=== PATIENT | male | born 1995 | race Asian ===

== ENCOUNTER → 2017-01-26 | Outpatient (CLI) | payer OTHER ==
[2017-01-26 14:37] LABS: BASO % 0.2 %; BASO ABS # 0.01 K/uL (0-0.2); COMPLETE YES; EOS % 2.1 %; HEMATOCRIT 43.6 % (42-52); IG% 0.2 %; LYMPH % 35.5 %; LYMPH ABS # 2.25 K/uL (1.2-3.4); MEAN CELL VOLUME 93.2 fL (80-100); MEAN CORPUSCULAR HGB CONC 33.3 g/dl (32-36); MEAN PLATELET VOLUME 10.8 fL (7.4-10.4); MONO % 7.4 %; NEUT % 54.6 %; PLATELET COUNT 180 K/uL (130-400); RED BLOOD COUNT 4.68 M/uL (4.7-6.1); WHITE BLOOD COUNT 6.34 K/uL (4.8-10.8)
[2017-01-26 14:48] LABS: ALT/SGPT 20 U/L (12-78); BLOOD UREA NITROGEN 13 mg/dl (7-18); BUN/CREATININE RATIO 18.8 (10-20); CALCIUM 9.3 mg/dl (8.5-10.1); CARBON DIOXIDE 31 mmol/L (21-32); CHLORIDE 102 mmol/L (98-107); CREATININE 0.69 mg/dl (0.60-1.40); GLUCOSE 91 mg/dl (70-99); POTASSIUM 4.1 mmol/L (3.5-5.1); SODIUM 139 mmol/L (136-145)
[2017-01-26 14:51] LABS: ALB/GLOB RATIO 1.3 (0.9-2); ALKALINE PHOSPHATASE 53 U/L (45-117); AST/SGOT 11 U/L (15-37)
[2017-02-03 05:33] LABS: JCV ANTIBODY INDETERMINATE; JCV INDEX 0.33
[2017-02-03 10:32] LABS: JCV INHIBITION(REFLX!DO NOTORD FINAL RSLT: POSITIVE
== END | disposition home or self-care (01) ==
LOC: C.LAB1850 12:34
PROVIDERS: ATTEND Psychiatry & Neurology Neurology
DX: G35 Multiple sclerosis (principal)

== ENCOUNTER → 2017-04-08 | Outpatient (CLI) | payer OTHER ==
[~2017-04-08] MED LIST: GADAVIST IV PRN
--- NOTE | 2017-04-08 18:51 | DIAGNOSTIC IMAGING REPORT ---
BRAIN COMBO FOR MS HISTORY: Multiple sclerosis G35 Multiple sclerosis TECHNIQUE: Multiplanar multisequence MRI of the brain was performed both before and after the intravenous administration of contrast. COMPARISON STUDY: None. FINDINGS: Diffusion-weighted images show no evidence for an acute ischemic insult. There are multiple foci of increased signal periventricular deep white matter regions. Cortical foci of demyelination are also noted over the left parietal and occipital subcortical regions. Foci of increased signal are noted within the right and to lesser extent left optic radiations. Postcontrast images show no evidence for abnormal postcontrast enhancement. The ventricular system is midline. IMPRESSION: 1. Findings consistent with a demyelinating disorder with multiple foci of increased signal throughout both cerebral hemispheres. 2. No abnormal postcontrast enhancement. 3. No evidence for an acute ischemic insult. 4. As prior studies are not available for comparison, the possibility of change from prior examination cannot be evaluated. The above report was generated using voice recognition software. It may contain grammatical, syntax or spelling errors. Electronically signed by: Rocky Eagle M.D. 04/08/2017 6:49 PM Dictated Date/Time: 04/08/2017 6:45 PM
== END | disposition home or self-care (01) ==
LOC: C.MRI 17:10
PROVIDERS: ATTEND Psychiatry & Neurology Neurology
DX: G35 Multiple sclerosis (principal)

== ENCOUNTER → 2017-09-06 | Outpatient (CLI) | payer OTHER ==
[2017-09-06 09:34] LABS: BASO % 0.2 %; BASO ABS # 0.01 K/uL (0-0.2); EOS % 3.1 %; EOS ABS # 0.18 K/uL (0-0.5); HEMATOCRIT 45.6 % (42-52); HEMOGLOBIN 15.2 g/dL (14.0-18.0); IG# 0.01 K/uL (0.00-0.02); LYMPH % 34.4 %; LYMPH ABS # 2.01 K/uL (1.2-3.4); MEAN CELL VOLUME 94.8 fL (80-100); MEAN CORPUSCULAR HEMOGLOBIN 31.6 pg (25-34); MEAN CORPUSCULAR HGB CONC 33.3 g/dl (32-36); MEAN PLATELET VOLUME 9.7 fL (7.4-10.4); MONO % 10.4 %; MONO ABS # 0.61 K/uL (0.11-0.59); NEUT % 51.7 %; NEUT ABS # 3.03 K/uL (1.4-6.5); PLATELET COUNT 216 K/uL (130-400); RED CELL DISTRIBUTION WIDTH CV 12.5 % (11.5-14.5); RED CELL DISTRIBUTION WIDTH SD 43.2 fL (36.4-46.3); WHITE BLOOD COUNT 5.85 K/uL (4.8-10.8)
[2017-09-06 09:58] LABS: ALBUMIN 4.1 gm/dl (3.4-5.0); ALT/SGPT 17 U/L (12-78); BLOOD UREA NITROGEN 10 mg/dl (7-18); CALCIUM 9.2 mg/dl (8.5-10.1); CARBON DIOXIDE 31 mmol/L (21-32); CREATININE 0.77 mg/dl (0.60-1.40); GLUCOSE 91 mg/dl (70-99); POTASSIUM 3.8 mmol/L (3.5-5.1); SODIUM 140 mmol/L (136-145)
[2017-09-06 10:01] LABS: ALKALINE PHOSPHATASE 53 U/L (45-117); AST/SGOT 13 U/L (15-37); TOTAL PROTEIN 7.3 gm/dl (6.4-8.2)
== END | disposition home or self-care (01) ==
LOC: C.LAB 08:48
PROVIDERS: ATTEND Psychiatry & Neurology Neurology
DX: G35 Multiple sclerosis (principal)

== ENCOUNTER → 2017-12-01 | Outpatient (CLI) | payer OTHER ==
--- NOTE | 2017-12-01 18:06 | ECHOCARDIOGRAM REPORT ---
*NOTICE TO RECEIVING LIBERTARIAN AGENCY This information is strictly Confidential and protected under [place] law. [place] law prohibits you from making any further disclosure of this information unless further disclosure is expressly permitted by the written consent of the person to whom it pertains or is authorized by law. A general authorization for the release of medical or other information is not sufficient for this purpose. Hospital accepts no responsibility if the information is made available to any other person, INCLUDING THE PATIENT. Interpretation Summary * Name: JAGDEEP LAUGHLIN Study Date: 12/01/2017 02:41 PM BP: 118/65 mmHg * Patient Location: [facility] HR: 82 * : 1995 (M/d/yyyy) Gender: Male Height: 67 in * Age: 22 yrs Ethnicity: Weight: 142 lb * Ordering Physician: Venus Levy * Referring Physician: Venus Levy * Performed By: Debbi Granados RDCS * * Reason For Study: PALPITATIONS * BSA: 1.7 m2 * -- Conclusions -- * 1. Normal left ventricular size and systolic function. EF 55-60%. No regional wall motion abnormalities. No left ventricular hypertrophy. No significant diastolic dysfunction. * 2. No significant valvular abnormalities. * 3. Normal estimated right ventricular systolic pressure. * 4. No prior study available for comparison. Procedure Details * A complete two-dimensional transthoracic echocardiogram was performed (2D, M-mode, Doppler and color flow Doppler). Left Ventricle * Normal left ventricular size and systolic function. EF 55-60%. No regional wall motion abnormalities. No left ventricular hypertrophy. No significant diastolic dysfunction. Right Ventricle * The right ventricle is normal in size and function. * The right ventricular systolic function is normal as assessed by tricuspid annular plane systolic excursion (TAPSE) (normal >1.5 cm). Atria * The left atrial size is normal. * Right atrial size is normal. * There is no evidence of atrial septal defect, but resolution does not allow assessment for a patent foramen ovale. Mitral Valve * The mitral valve leaflets appear normal. There is no evidence of stenosis, fluttering, or prolapse. * There is no mitral regurgitation noted. Tricuspid Valve * The tricuspid valve is not well visualized, but is grossly normal. * There is no tricuspid stenosis. * There is trace tricuspid regurgitation. Aortic Valve * The aortic valve is trileaflet. * No hemodynamically significant valvular aortic stenosis. * No aortic regurgitation is present. Pulmonic Valve * The pulmonary valve is inadequately visualized, but the Doppler data is adequate for interpretation. * There is no pulmonic valvular stenosis. * Mild pulmonic valvular regurgitation. Great Vessels * The aortic root is normal size. * Ascending aorta of normal dimension * Aortic arch of normal dimension. Pericardium/Pleural * There is no pericardial effusion. Great Vessels * Normal inferior vena cava size and collapsability with sniff indicates a normal right atrial pressure of 3 mmHg MMode 2D Measurements and Calculations IVSd 0.81 cm IVSs 1.4 cm LVIDd 4.3 cm LVIDs 3.1 cm LVPWd 1.1 cm LVPWs 1.4 cm IVS/LVPW 0.76 FS 29.2 % EDV(Teich) 85.3 ml ESV(Teich) 37.3 ml EF(Teich) 56.3 % EDV(cubed) 82.2 ml ESV(cubed) 29.2 ml EF(cubed) 64.5 % % IVS thick 67.3 % % LVPW thick 35.4 % LV mass(C)d 132.7 grams LV mass(C)dI 75.9 grams/m\S\2 LV mass(C)s 145.1 grams LV mass(C)sI 83.0 grams/m\S\2 SV(Teich) 48.0 ml SI(Teich) 27.4 ml/m\S\2 SV(cubed) 53.0 ml SI(cubed) 30.3 ml/m\S\2 Ao root diam 2.8 cm Ao root area 6.1 cm\S\2 LA dimension 3.5 cm asc Aorta Diam 2.0 cm LA/Ao 1.3 LVAd ap4 31.5 cm\S\2 LVLd ap4 8.3 cm EDV(MOD-sp4) 99.8 ml EDV(sp4-el) 102.2 ml LVAs ap4 19.5 cm\S\2 LVLs ap4 7.1 cm ESV(MOD-sp4) 45.7 ml ESV(sp4-el) 45.1 ml EF(MOD-sp4) 54.3 % EF(sp4-el) 55.9 % LVAd ap2 33.8 cm\S\2 LVLd ap2 8.7 cm EDV(MOD-sp2) 112.8 ml EDV(sp2-el) 111.4 ml LVAs ap2 21.1 cm\S\2 LVLs ap2 7.7 cm ESV(MOD-sp2) 49.7 ml ESV(sp2-el) 49.1 ml EF(MOD-sp2) 55.9 % EF(sp2-el) 56.0 % LVLd %diff 5.2 % EDV(MOD-bp) 108.9 ml LVLs %diff 7.1 % ESV(MOD-bp) 49.3 ml EF(MOD-bp) 54.8 % SV(MOD-sp4) 54.2 ml SI(MOD-sp4) 31.0 ml/m\S\2 SV(MOD-sp2) 63.1 ml SI(MOD-sp2) 36.1 ml/m\S\2 SV(MOD-bp) 59.6 ml SI(MOD-bp) 34.1 ml/m\S\2 SV(sp4-el) 57.1 ml SI(sp4-el) 32.7 ml/m\S\2 SV(sp2-el) 62.3 ml SI(sp2-el) 35.7 ml/m\S\2 Doppler Measurements and Calculations MV E max kamron 75.5 cm/sec MV A max kamron 54.4 cm/sec MV E/A 1.4 MV dec time 0.20 sec Ao V2 max 116.3 cm/sec Ao max PG 5.4 mmHg Ao max PG (full) 3.0 mmHg LV V1 max PG 2.4 mmHg LV V1 max 77.6 cm/sec TV E max kamron 64.7 cm/sec TR max kamron 243.6 cm/sec RVSP(TR) 26.7 mmHg RAP systole 3.0 mmHg
== END | disposition home or self-care (01) ==
LOC: C.CPL 14:35
PROVIDERS: ATTEND Internal Medicine
DX: I49.9 Cardiac arrhythmia, unspecified (principal)